=== PATIENT | female | born 1955 | race Caucasian/White ===

== ENCOUNTER → 2016-08-23 | Outpatient (CLI) | payer OTHER ==
[~2016-08-23] MED LIST: ATROPINE SULFATE 0.1 MG/ML 10ML SYRINGE ONE; DOBUTamine DRIP for NUC MED 500 MG in DEXTROSE/WATER 1 250ML.BAG IV ONE
--- NOTE | 2016-08-23 12:35 | ECHOS ---
DATE OF SERVICE: 08/23/2016 AGE: 61Y SEX: F HT: 63 WT: 158 lbs. Protocol Eric: Others: Dobutamine Stress Echo Stage: 4 Dur. of Exercise: 12:00 *Heart Rate Blood Pressure *Rest: 66 Rest: 125/76 * *Max. Achieved: 139 Maximum BP: 181/65 85% PMHR: 134 100% PMHR: 158 *METS: - INDICATIONS: Pre-operative. MEDICATIONS: - Baseline rhythm is sinus mechanism, rate of 66, normal axis and intervals, poor R-wave progression. Baseline blood pressure 125/76 mmHg. Patient received infusion of dobutamine per protocol as well as 0.5 mg of atropine. Peak rate 139 beats per minute, which is equal to 70% maximum predicted heart rate; peak blood pressure 181/65 mmHg. Electrocardiograph monitoring revealed occasional PVCs. There was no evidence of diagnostic ischemic ST deviation. FINDINGS: Baseline echocardiogram revealed normal wall motion. At peak exercise there was normal wall motion augmentation with no hypokinesis or dyskinesis. CONCLUSION: 1. Normal electrocardiograph response to dobutamine infusion with occasional premature ventricular contractions. 2. Normal stress echocardiogram with no evidence of stress-induced ischemia.
== END ==
LOC: RADNMMAIN 09:00
PROVIDERS: ATTEND Internal Medicine Cardiovascular Disease
DX: I42.9 Cardiomyopathy, unspecified (principal)
CPT/HCPCS: 93017; 93350; J1250

== ENCOUNTER 2024-06-19 12:28 | Observation (INO) | payer MEDICARE, OTHER ==
--- NOTE | 2024-06-19 12:54 | ED ---
General Adult HPI - General Stated complaint: HTN, dizziness Time Seen by Provider: 06/19/24 12:29 - History of Present Illness Initial comments: Dictation was produced using [employer] dictation software. please excuse any grammatical, word or spelling errors. Chief Complaint: 69-year-old female presents with dizziness and vertigo History of Present Illness: Patient is a 69-year-old female history of lung CVA. Patient presents to the emergency department for 1 to 2 days of dizziness and vertigo. Patient states that her symptoms are constant and persistent despite no movement. States that it does feel worse whenever she stands. Denies any vision changes. No numbness tingling paresthesias or weakness to the extremities. denies any acute pain. The ROS documented in this emergency department record has been reviewed and confirmed by me. Those systems with pertinent positive or negative responses have been documented in the HPI. .All other systems are other negative and/or noncontributory. - Related Data Home Medications Medication Instructions Recorded Confirmed DULoxetine HCL [Cymbalta] 60 mg PO DAILY 09/14/14 06/19/24 Gabapentin 800 mg PO TID 09/14/14 06/19/24 Oxybutynin Chloride 5 mg PO DAILY 09/14/14 06/19/24 Albuterol Sulfate [Ventolin HFA] 2 puff INHALATION RT-Q6H PRN 02/18/16 06/19/24 Aspirin EC [Ecotrin Low Dose] 81 mg PO DAILY 06/19/24 06/19/24 Baclofen [Lioresal] 10 mg PO TID PRN 06/19/24 06/19/24 Clopidogrel [Plavix] 75 mg PO DAILY 06/19/24 06/19/24 Fluticasone Propion/Salmeterol 1 puff INHALATION RT-Q12H 06/19/24 06/19/24 [Fluticasone-Salmeterol 250-50] Insulin Glargine,Hum.rec.anlog 7 - 8 unit SQ HS PRN 06/19/24 06/19/24 [Basaglar Kwikpen U-100] Ondansetron [Zofran] 4 mg PO QID PRN 06/19/24 06/19/24 Pravastatin Sodium [Pravachol] 40 mg PO DAILY 06/19/24 06/19/24 Umeclidinium [place] [Incruse 1 puff INHALATION RT-DAILY 06/19/24 06/19/24 Ellipta] lisinopriL [Zestril] 10 mg PO DAILY 06/19/24 06/19/24 oxyCODONE HCL [oxyCODONE HCL (IR)] 10 mg PO Q6HR PRN 06/19/24 06/19/24 traZODone HCL [Desyrel] 100 mg PO HS 06/19/24 06/19/24 Allergies Allergy/AdvReac Type Severity Reaction Status Date / Time cephalexin monohydrate Allergy Unknown Verified 06/19/24 13:13 [From Keflex] povidone-iodine Allergy Unknown Verified 06/19/24 13:13 [From Betadine] quetiapine fumarate Allergy Unknown Verified 06/19/24 13:13 [From Seroquel] soap [From Betadine] Allergy Unknown Verified 06/19/24 13:13 adhesive tape AdvReac Rash/Hives Verified 06/19/24 13:13 Review of Systems ROS Statement: Those systems with pertinent positive or pertinent negative responses have been documented in the HPI. ROS Other: All systems not noted in ROS Statement are negative. Past Medical History Past Medical History: COPD, Diabetes Mellitus, Hypertension, Musculoskeletal Dis order Additional Past Medical History / Comment(s): MS, wears 3L NC @ home History of Any Multi-Drug Resistant Organisms: None Reported Past Surgical History: Bladder Surgery, Breast Surgery, Cholecystectomy, Heart Catheterization With Stent, Hysterectomy Additional Past Surgical History / Comment(s): Bronchoscopy 10/13/15 Past Anesthesia/Blood Transfusion Reactions: No Reported Reaction Date of Last Stent Placement:: n\\a Past Psychological History: Anxiety, Depression Additional Past Alcohol Use History / Comment(s): smokes 8 cigarettes a day. does not use any alcohol. Past Drug Use History: None Reported - Past Family History Mother Family Medical History: Congestive Heart Failure (CHF) Additional Family Medical History / Comment(s): " from blood clot" Father Family Medical History: Cancer Additional Family Medical History / Comment(s): Lung CA Brother(s) Family Medical History: Diabetes Mellitus Additional Family Medical History / Comment(s): younger brother had grand mal seizures. General Exam - General Exam Comments Initial Comments: PHYSICAL EXAM: General Impression: Alert and oriented x3, not in acute distress HEENT: Normocephalic atraumatic, extra-ocular movements intact, pupils equal and reactive to light bilaterally, mucous membranes moist. Cardiovascular: Heart regular rate and rhythm Chest: Able to complete full sentences, no retractions, no tachypnea Abdomen: abdomen soft, non-tender, non-distended, no organomegaly Musculoskeletal: Pulses present and equal in all extremities, no peripheral edema Motor: no focal deficits noted Neurological: CN II-XII grossly intact, no focal motor or sensory deficits noted, direction changing nystagmus Skin: Intact with no visualized rashes Psych: Normal affect and mood Course Vital Signs 06/19/24 12:48 Temperature 98.1 F Pulse Rate 114 H Respiratory 22 Rate Blood Pressure 102/65 O2 Sat by Pulse 98 Oximetry EKG Findings - EKG Comments: EKG Findings:: My EKG interpretation: Ventricular rate 114, tachycardia QRS 86, QTc 400. No DE prolongation, no QTC prolongation, no ST or T-wave changes noted. . Overall, this EKG is unremarkable Medical Decision Making - Medical Decision Making Was pt. sent in by a medical professional or institution (, PA, [employer]CH[employer]IC, urgent care, hospital, or jail...) When possible be specific @ -No Did you speak to anyone other than the patient for history (EMS, parent, family, police, friend...)? What history was obtained from this source @ -No Did you review nursing and triage notes (agree or disagree)? Why? @ -I reviewed and agree with nursing and triage notes Were old charts reviewed (outside hosp., previous admission, EMS record, old EKG, old radiological studies, urgent care reports/EKG's, jail records)? Report findings @ -No old charts were reviewed Differential Diagnosis (chest pain, altered mental status, abdominal pain women, abdominal pain men, vaginal bleeding, musculoskeletal, weakness, fever, dyspnea, syncope, headache, dizziness, GI bleed, back pain, seizure, CVA, palpatations, mental health)? @ -Differential Dizziness: Benign paroxysmal positional Vertigo, Meniere's disease, otitis media, acoustic neuroma, vertebrobasilar insufficiency, cerebellar stroke, encephalitis, hypovolemic, arrhythmia, coronary artery syndrome, anemia, this is not meant to be an all-inclusive list EKG interpreted by me (3pts min.). @ -Above X-rays interpreted by me (1pt min.). @ -None done CT interpreted by me (1pt min.). @ -CT brain shows no acute processes. CT angiography shows no large vessel occlusion U/S interpreted by me (1pt. min.). @ -None done What testing was considered but not performed or refused? (CT, X-rays, U/S, labs)? Why? @ -None What meds were considered but not given or refused? Why? @ -None Was smoking cessation discussed for >3mins.? @ -No Were there social determinants of health that impacted care today? How? (Homelessness, low income, unemployed, alcoholism, drug addiction, transportation, low edu. Level, literacy, decrease access to med. care, nursing home, rehab)? @ -No Was there de-escalation of care discussed even if they declined (Discuss DNR or withdrawal of care, Hospice)? DNR status @ -No What co-morbidities impacted this encounter? (DM, HTN, Smoking, COPD, CAD, Cancer, CVA, ARF, Chemo, Hep., AIDS, mental health diagnosis, sleep apnea, morbid obesity)? @ -Lung cancer Was patient admitted / discharged? Hospital course, mention meds given and route, prescriptions, significant lab abnormalities, going to OR and other pertinent info. @ -69-year-old female presents emergency department dizziness and vertigo. Vital signs stable. Physical examination shows concerning nystagmus. Suspect central cause of vertigo. Laboratory evaluation obtained. Hyponatremia 131, potassium 3.1. Lactic acidosis 2.3. Rest of labs within acceptable. Imaging studies are negative. Given patient's history of lung cancer and concern for central cause of vertigo recommend patient for hospital admission with consultation to neurology. Patient sleeping however still feeling vertiginous upon reevaluation at 3:24 PM. Case discussed with hospitalist for admission Did you discuss the management of the patient with other professionals (professionals i.e. , PA, [employer]CH[employer]IC, lab, RT, psych nurse, social sciences professor, lathe mechanic, teacher, helicopter officer, outpatient case manager)? Give summary @ -No Was critical care preformed (if so, how long)? @ -No Undiagnosed new problem with uncertain prognosis? @ -No Drug Therapy requiring intensive monitoring for toxicity (Heparin, Nitro, Insulin, Cardizem)? @ -No Were any procedures done? @ -No Diagnosis/symptom? Acute, or Chronic, or Acute on Chronic? Uncomplicated (without systemic symptoms) or Complicated (systemic symptoms)? @ -Vertigo Side effects of treatment? @ -No Exacerbation, Progression, or Severe Exacerbation? @ -No Poses a threat to life or bodily function? How? (Chest pain, USA, SD, pneumonia, PE, COPD, DKA, ARF, appy, cholecystitis, CVA, Diverticulitis, Homicidal, Suicida l, threat to staff... and all critical care pts) @ -yes - Lab Data Result diagrams: 06/19/24 13:07 06/19/24 13:07 Lab Results 06/19/24 06/19/24 06/19/24 Range/Units 13:07 13:07 13:07 WBC 9.1 (3.8-10.6) k/uL RBC 3.78 L (3.80-5.40) m/uL Hgb 10.1 L (11.4-16.0) gm/dL Hct 31.3 L (34.0-46.0) % MCV 82.8 (80.0-100.0) fL MCH 26.8 (25.0-35.0) pg MCHC 32.4 (31.0-37.0) g/dL RDW 13.8 (11.5-15.5) % Plt Count 340 (150-450) k/uL MPV 7.5 Neutrophils % 84 % Lymphocytes % 9 % Monocytes % 5 % Eosinophils % 1 % Basophils % 0 % Neutrophils # 7.7 (1.3-7.7) k/uL Lymphocytes # 0.8 L (1.0-4.8) k/uL Monocytes # 0.5 (0-1.0) k/uL Eosinophils # 0.1 (0-0.7) k/uL Basophils # 0.0 (0-0.2) k/uL PT 11.4 (10.0-12.5) sec INR 1.0 (<1.2) APTT 24.0 (22.0-30.0) sec Sodium 131 L (137-145) mmol/L Potassium 3.1 L (3.5-5.1) mmol/L Chloride 92 L (98-107) mmol/L Carbon Dioxide 34 H (22-30) mmol/L Anion Gap 5 mmol/L BUN 7 (7-17) mg/dL Creatinine 0.57 (0.52-1.04) mg/dL Est GFR (CKD-EPI)AfAm >90 (>60 ml/min/1.73 sqM) Est GFR (CKD-EPI)NonAf >90 (>60 ml/min/1.73 sqM) Glucose 171 H (74-99) mg/dL Plasma Lactic Acid Bishop (0.7-2.0) mmol/L Calcium 8.4 (8.4-10.2) mg/dL Magnesium 1.9 (1.6-2.3) mg/dL Total Bilirubin 0.2 (0.2-1.3) mg/dL AST 14 (14-36) U/L ALT 11 (4-34) U/L Alkaline Phosphatase 98 (38-126) U/L Total Protein 5.6 L (6.3-8.2) g/dL Albumin 2.9 L (3.5-5.0) g/dL 06/19/24 Range/Units 13:07 WBC (3.8-10.6) k/uL RBC (3.80-5.40) m/uL Hgb (11.4-16.0) gm/dL Hct (34.0-46.0) % MCV (80.0-100.0) fL MCH (25.0-35.0) pg MCHC (31.0-37.0) g/dL RDW (11.5-15.5) % Plt Count (150-450) k/uL MPV Neutrophils % % Lymphocytes % % Monocytes % % Eosinophils % % Basophils % % Neutrophils # (1.3-7.7) k/uL Lymphocytes # (1.0-4.8) k/uL Monocytes # (0-1.0) k/uL Eosinophils # (0-0.7) k/uL Basophils # (0-0.2) k/uL PT (10.0-12.5) sec INR (<1.2) APTT (22.0-30.0) sec Sodium (137-145) mmol/L Potassium (3.5-5.1) mmol/L Chloride (98-107) mmol/L Carbon Dioxide (22-30) mmol/L Anion Gap mmol/L BUN (7-17) mg/dL Creatinine (0.52-1.04) mg/dL Est GFR (CKD-EPI)AfAm (>60 ml/min/1.73 sqM) Est GFR (CKD-EPI)NonAf (>60 ml/min/1.73 sqM) Glucose (74-99) mg/dL Plasma Lactic Acid Bishop 2.3 H* (0.7-2.0) mmol/L Calcium (8.4-10.2) mg/dL Magnesium (1.6-2.3) mg/dL Total Bilirubin (0.2-1.3) mg/dL AST (14-36) U/L ALT (4-34) U/L Alkaline Phosphatase (38-126) U/L Total Protein (6.3-8.2) g/dL Albumin (3.5-5.0) g/dL Disposition Clinical Impression: Vertigo Disposition: ADMITTED IP TO THIS [facility] Condition: Fair Referrals: None,Stated [Primary Care Provider] - 1-2 days Decision Time: 15:25
[2024-06-19] MEDS: MECLIZINE 12.5 MG TAB PO STA (13:18)
[2024-06-19] MEDS: MORPHINE SULFATE 4 MG/ML SYRINGE IVP PRN (13:18)
[2024-06-19] MEDS: METOCLOPRAMIDE 5 MG/ML 2 ML VIAL IVP STA (13:18)
[2024-06-19 13:23] LABS: Basophils % (A) 0 %; Eosinophils # (A) 0.1 k/uL (0-0.7); Eosinophils % (A) 1 %; HCT 31.3 % (34.0-46.0); HGB 10.1 gm/dL (11.4-16.0); Lymphocytes # (A) 0.8 k/uL (1.0-4.8); Lymphocytes % (A) 9 %; MCH 26.8 pg (25.0-35.0); MCHC 32.4 g/dL (31.0-37.0); MCV 82.8 fL (80.0-100.0); Mean Platelet Volume 7.5; Monocytes # (A) 0.5 k/uL (0-1.0); Monocytes % (A) 5 %; Neutrophils # (A) 7.7 k/uL (1.3-7.7); Neutrophils % (A) 84 %; Platelet Count 340 k/uL (150-450); RBC 3.78 m/uL (3.80-5.40); RDW 13.8 % (11.5-15.5); WBC 9.1 k/uL (3.8-10.6)
[2024-06-19 13:33] LABS: Prothrombin Time 11.4 sec (10.0-12.5)
[2024-06-19 13:39] LABS: ALT 11 U/L (4-34); AST 14 U/L (14-36); African American GFR (CKD) >90 (>60 ml/min/1.73 sqM); Albumin 2.9 g/dL (3.5-5.0); Alkaline Phosphatase 98 U/L (38-126); Anion Gap 5 mmol/L; Blood Urea Nitrogen 7 mg/dL (7-17); Calcium 8.4 mg/dL (8.4-10.2); Carbon Dioxide 34 mmol/L (22-30); Chloride 92 mmol/L (98-107); Glucose 171 mg/dL (74-99); Magnesium 1.9 mg/dL (1.6-2.3); Non-African American GFR(CKD) >90 (>60 ml/min/1.73 sqM); Potassium 3.1 mmol/L (3.5-5.1); Sodium 131 mmol/L (137-145); Total Bilirubin 0.2 mg/dL (0.2-1.3); Total Protein 5.6 g/dL (6.3-8.2)
--- NOTE | 2024-06-19 14:45 | CT ---
EXAMINATION TYPE: CT brain wo con DATE OF EXAM: 06/19/2024 COMPARISON: None CLINICAL INDICATION: Female, 69 years old with history of vertigo, hx of lung CA; PHH, dizziness, low bP. hx of lung ca CT DLP: 1209.6 mGycm Automated exposure control for dose reduction was used. Findings: The ventricles, basal cisterns and sulci over the convexities are within normal limits and there is n o mass effect or shift of midline structures. No abnormal density is seen throughout the brain parenchyma and there is no acute intra or extra-axia l hemorrhage. The posterior fossa including the brainstem, fourth ventricle and cerebellar pontine angles appear no rmal. Intraorbital contents appear normal and symmetric. Visualized paranasal sinuses and mastoid air cells are well aerated. The calvarium is intact. IMPRESSION: No significant abnormality seen. There is no acute bleed or mass effect. [facility], , 06/19/2024 2:42 PM
--- NOTE | 2024-06-19 14:52 | CT ---
EXAMINATION TYPE: CT angio head neck DATE OF EXAM: 06/19/2024 COMPARISON: None CLINICAL INDICATION: Female, 69 years old with history of neurologic defecit; PHH, dizziness, low bP. hx of lung ca TECHNIQUE: CTA scan of the head and neck is performed with IV Contrast, patient injected with 65ml m L of Isovue 370, axial images are obtained, coronal and sagittal reformatted images are reviewed. 3D reconstructed images are created on an independent workstation and reviewed. CT DLP: 349.[address] CTDI: mGy Automated exposure control for dose reduction was used. NASCET criteria was used in interpretation of this exam? FINDINGS: FINDINGS: The brachiocephalic origins are widely patent and no significant stenosis. There is no significant stenosis of the common or internal carotid arteries within the neck. There is minimal calcified eccentric plaques in the carotid bifurcations bilaterally. There is no stenosis of the vertebral arteries. Intracranially, there is no stenosis, segmental occlusion, sizable aneurysm sac or vascular malformat ion. In the visualized portion of the right lung apex, oz mass/consolidation is partially visualized and correlation with CT thorax is recommended. IMPRESSION:. 1. No significant occlusive disease of the carotid arteries within the neck or intracerebral circulat ion. 2. Lung mass or consolidation in the visualized portion of the right lung and correlation with CT tho rax is recommended. NASCET criteria was used in interpretation of this exam? [facility], , 06/19/2024 2:49 PM
[2024-06-19] MEDS ORDERED: NALOXONE 0.4 MG/ML 1 ML VIAL IV PRN (15:21)
[2024-06-19] MEDS: SODIUM CHLORIDE 0.9% 1,000 ML IV STA (15:48)
[2024-06-19] MEDS: SODIUM CHLORIDE 0.9% 1,000 ML IV SCH (15:49)
[2024-06-19] MEDS: MORPHINE SULFATE 4 MG/ML SYRINGE IV PRN (18:12)
[2024-06-19] MEDS ORDERED: BACLOFEN 10 MG TAB PO PRN (20:48)
[2024-06-19] MEDS ORDERED: ONDANSETRON 4 MG TAB PO PRN (20:48)
[2024-06-19] MEDS: GABAPENTIN 400 MG CAP PO SCH (21:33)
[2024-06-19] MEDS: traZODone HCL 100 MG TAB PO SCH (21:33)
[2024-06-19] MEDS: ACETAMINOPHEN TAB 325 MG TAB PO PRN (21:40)
[2024-06-20] MEDS ORDERED: Potassium Replacement Protocol 1 EACH MISC MISCELLANE PRN (05:52)
[2024-06-20] MEDS: SYMBICORT 80-4.5 MCG INHALER INHALATION SCH (08:06)
[2024-06-20] MEDS: TIOTROPIUM 2.5 MCG INHALER INHALATION SCH (08:06)
[2024-06-20] MEDS: ASPIRIN 81 MG PO SCH (09:31)
[2024-06-20] MEDS: DULoxetine HCL 60 MG CAPSULE.DR PO SCH (09:31)
[2024-06-20] MEDS: CLOPIDOGREL 75 MG TAB PO SCH (09:31)
[2024-06-20] MEDS: oxyBUTYnin chloride 5 MG TAB PO SCH (09:31)
[2024-06-20] MEDS: lisinopriL 10 MG TAB PO SCH (09:31)
[2024-06-20] MEDS: PRAVASTATIN SODIUM 40 MG TAB PO SCH (09:31)
--- NOTE | 2024-06-20 11:13 | P.CNNES ---
History of Present Illness Consult date: 06/20/23 Requesting physician: Jefe Travis Reason for Consult: vertigo, suspect central cause History of Present Illness: This is a 69-year-old woman who presented emergency department because of dizziness. Patient stated her dizziness began about 2 days ago and she described as the room spinning. She feels is at rest and movement but mostly with movement. She did have nausea but no vomiting. She feels her ears are rin ging bilaterally. Also endorses generalized weakness. She states that recently she is having dry cough. Denies any recent sickness. That her vision is blurry but denies any diplopia, dysphagia, focal weakness, numbness. Denies any history of stroke. Denies any history of atrial fibrillation. She has history of lung cancer status post chemoradiation therapy and last session was more than a year ago and she states that she is in remission. She has a history of ex tobacco use and stopped more than a year ago. She has a history of coronary artery disease status post stent. She does feel mildly better regarding her dizziness today compared to her initial presentation yesterday. Some of the workup during this hospital visit consisted of: Name is 131, glucose is 171, initial plasma lactic acid venous 2.3 and repeat is 1.8 Calcium, magnesium, AST and ALT are within normal limits. CT of the head is reported as no significant abnormality seen. There is no acute bleed or mass effect. I personally reviewed the CT and agree with the report. Neurography of the head and neck is reported as no significant occlusive disease of the carotid artery within the neck or intracerebral circulation. Lung mass or consolidation in the visualized portion of the right lung and correlation with CT thorax is recommended. Review of Systems As per HPI. Past Medical History Past Medical History: COPD, Diabetes Mellitus, Hypertension, Musculoskeletal Disorder Additional Past Medical History / Comment(s): MS, wears 3L NC @ home History of Any Multi-Drug Resistant Organisms: None Reported Past Surgical History: Bladder Surgery, Breast Surgery, Cholecystectomy, Heart Catheterization With Stent, Hysterectomy Additional Past Surgical History / Comment(s): Bronchoscopy 10/13/15 Past Anesthesia/Blood Transfusion Reactions: No Reported Reaction Date of Last Stent Placement:: n\\a Past Psychological History: Anxiety, Depression Additional Past Alcohol Use History / Comment(s): smokes 8 cigarettes a day. does not use any alcohol. Past Drug Use History: None Reported - Past Family History Mother Family Medical History: Congestive Heart Failure (CHF) Additional Family Medical History / Comment(s): " from blood clot" Father Family Medical History: Cancer Additional Family Medical History / Comment(s): Lung CA Brother(s) Family Medical History: Diabetes Mellitus Additional Family Medical History / Comment(s): younger brother had grand mal seizures. Medications and Allergies Home Medications Medication Instructions Recorded Confirmed Type DULoxetine HCL [Cymbalta] 60 mg PO DAILY 09/14/14 06/19/24 History Gabapentin 800 mg PO TID 09/14/14 06/19/24 History Oxybutynin Chloride 5 mg PO DAILY 09/14/14 06/19/24 History Albuterol Sulfate [Ventolin HFA] 2 puff INHALATION RT-Q6H PRN 02/18/16 06/19/24 History Aspirin EC [Ecotrin Low Dose] 81 mg PO DAILY 06/19/24 06/19/24 History Baclofen [Lioresal] 10 mg PO TID PRN 06/19/24 06/19/24 History Clopidogrel [Plavix] 75 mg PO DAILY 06/19/24 06/19/24 History Fluticasone Propion/Salmeterol 1 puff INHALATION RT-Q12H 06/19/24 06/19/24 History [Fluticasone-Salmeterol 250-50] Insulin Glargine,Hum.rec.anlog 7 - 8 unit SQ HS PRN 06/19/24 06/19/24 History [Basaglar Kwikpen U-100] Ondansetron [Zofran] 4 mg PO QID PRN 06/19/24 06/19/24 History Pravastatin Sodium [Pravachol] 40 mg PO DAILY 06/19/24 06/19/24 History Umeclidinium [place] [Incruse 1 puff INHALATION RT-DAILY 06/19/24 06/19/24 History Ellipta] lisinopriL [Zestril] 10 mg PO DAILY 06/19/24 06/19/24 History oxyCODONE HCL [oxyCODONE HCL (IR)] 10 mg PO Q6HR PRN 06/19/24 06/19/24 History traZODone HCL [Desyrel] 100 mg PO HS 06/19/24 06/19/24 History Allergies Allergy/AdvReac Type Severity Reaction Status Date / Time cephalexin monohydrate Allergy Unknown Verified 06/19/24 13:13 [From Keflex] povidone-iodine Allergy Unknown Verified 06/19/24 13:13 [From Betadine] quetiapine fumarate Allergy Unknown Verified 06/19/24 13:13 [From Seroquel] soap [From Betadine] Allergy Unknown Verified 06/19/24 13:13 adhesive tape AdvReac Rash/Hives Verified 06/19/24 13:13 Physical Examination - Vital Signs Vital Signs: Vital Signs Temp Pulse Pulse Resp BP BP Pulse Ox 06/20/24 09:34 92/57 06/20/24 08:07 97 06/20/24 07:57 97.7 F 75 20 110/66 97 06/20/24 06:28 62 20 92/58 99 06/20/24 03:30 64 18 113/61 99 06/20/24 00:24 70 20 100/59 99 06/19/24 20:14 82 18 116/51 95 06/19/24 18:04 97.8 F 73 20 86/48 97 06/19/24 15:41 81 20 87/41 98 06/19/24 12:48 98.1 F 114 H 22 102/65 98 GENERAL: The patient is lying in bed and is not in acute distress. NEUROLOGICAL: Higher mental function: The patient is awake, alert, oriented to self, place and time. Patient is following commands. No aphasia and no neglect. Cranial nerves: The pupils are round, 4mm, equal and reactive to light and accommodation. Visual warren are full to confrontation throughout. Extraocular movement is intact no nystagmus is noted. Facial sensation is normal to touch throughout. The facial strength is normal throughout. Hearing is normal bilaterally to hand rub. Tongue is midline and moved [id number] without any difficulty. No dysarthria is noted. Shoulder shrug is normal bilaterally. Motor: The strength is 5 over 5 throughout. Normal tone and bulk. Cerebellum: Normal finger to nosebilaterally. Sensation: Sensation is normal to touch throughout. Reflexes (right/left): 2+ throughout. Plantars are mute bilaterally. Results - Laboratory Findings CBC and BMP: 06/19/24 13:07 06/19/24 13:07 Abnormal Lab Findings: Abnormal Labs 06/19/24 06/19/24 06/19/24 13:07 13:07 13:07 RBC 3.78 L Hgb 10.1 L Hct 31.3 L Lymphocytes # 0.8 L Sodium 131 L Potassium 3.1 L Chloride 92 L Carbon Dioxide 34 H Glucose 171 H Plasma Lactic Acid Bishop 2.3 H* Total Protein 5.6 L Albumin 2.9 L Assessment and Plan Assessment: This is a 69-year-old woman with history of lung cancer status post chemoradiation therapy who presented emergency department because of dizziness about 2 days ago with ringing in the ears and has been having dry cough feels she is having blurry vision. Acute Vertigo seems more peripheral. On examination no focal deficit, no ataxia or dysmetria. I highly doubt central cause such as stroke or brain mets. Lung mass or consolidation on the right lung on the CT angiography History of lung cancer History of coronary artery disease status post stent Plan: I ordered MRI of the brain with and without to rule out any stroke or brain mets. Patient was given meclizine 50 mg once. I started the patient on meclizine 25 mg 1 tablet 3 times daily scheduled for 7 days and after that as needed. Patient is resumed on her home medication of aspirin 81 mg and Plavix 75 mg. I consulted PT and OT If MRI of the brain is unremarkable and patient continues to have dizziness then recommend the patient to follow-up with the ENT as an outpatient for further evaluation and consider reversible rehab therapy as an outpatient Lung mass or consolidation on the right lung on the CT angiography: Recommend pulmonary or Oncology consultation. Will defer the rest of the medical management to primary team and other speciali st Thank you for the consultation Dr. Morillo will resume neurology service tomorrow A.M. ADDENDUM: I spoke with the patient nurse and notified her about my recommendation but I was notified that patient wants to pursue hospice. If she does pursue hospice then no further neurological workup is needed. Time with Patient: Greater than 30
[2024-06-20] MEDS: MECLIZINE 12.5 MG TAB PO SCH (12:14)
[2024-06-20 14:30] VITALS: BMI 24.7
[2024-06-20] MEDS: ALBUTEROL NEBULIZED 2.5 MG/3 ML INHALATION PRN (14:37)
--- NOTE | 2024-06-20 16:43 | MR ---
EXAMINATION TYPE: MR brain wo/w con DATE OF EXAM: 06/20/2024 4:37 PM COMPARISON: 10/07/2014. CLINICAL INDICATION: Female, 69 years old with history of acute vertigo. hx of lung ca; PHH, Acute ve rtigo, Hx of lung cancer TECHNIQUE: Multi planar, multi sequence imaging was performed through the brain including: T1, T2, In version recovery, susceptibility weighted imaging and gradient echo imaging and Diffusion weighted im aging. The patient was then given intravenous contrast and multi planar, T1 fat-saturation images wer e obtained. IV Contrast: 6.5 mL Gadobutrol FINDINGS: The calhoun-white junctions, ventricular system, basal cisterns appear unremarkable. Diffusion-weighted imaging shows no evidence of restricted diffusion to suggest acute/subacute infarct. Intracranial ar terial flow voids are maintained. Midline structures show no abnormality. Scattered foci of high T2 s ignal intensity are seen within the periventricular white matter. The susceptibility weighted images do not reveal any evidence for micro-hemorrhage. After administration of gadolinium, no abnormal enha ncement is seen. The bone marrow signal is within normal limits. Paranasal sinuses and mastoid air cells: No significant paranasal sinus disease. Visualized orbits: Bilateral aphakia IMPRESSION: 1. No evidence of intracranial mass, acute/subacute infarct, or abnormal enhancement. 2. Nonspecific white matter changes, likely related to small vessel ischemic disease. [facility], , 06/20/2024 4:41 PM
[2024-06-20 20:44] LABS: Glucose,Whole Blood 170 mg/dL (70-110)
[2024-06-20] MEDS ORDERED: DEXTROSE 50% SYRINGE 50 ML IVP PRN ×2 (21:21)
[2024-06-20] MEDS ORDERED: IBUPROFEN 400 MG TAB PO PRN (22:42)
[2024-06-20] MEDS: INSULIN DETEMIR (LEVEMIR) 100 UNIT/ML SYR SQ SCH (22:54)
[2024-06-20 23:35] LABS: Influenza A Not Detected (Not Detectd); Influenza B Not Detected (Not Detectd); RSV Not Detected (Not Detectd)
[2024-06-21 07:04] LABS: Glucose,Whole Blood 144 mg/dL (70-110)
[2024-06-21] MEDS: INSULIN ASPART (NovoLOG) 100 UNIT/ML VIAL SQ SCH (07:49)
[2024-06-21] MEDS: POTASSIUM CHLORIDE ER 20 MEQ TAB.ER PO SCH (08:18)
[2024-06-21 09:41] LABS: Blood Urea Nitrogen 4.5 mg/dL (9.0-27.0); Calcium 8.2 mg/dL (8.7-10.3); Carbon Dioxide 28.5 mmol/L (21.6-31.8); Chloride 96 mmol/L (96-109); Glucose 135 mg/dL (70-110); Potassium 3.2 mmol/L (3.5-5.5); Sodium 135 mmol/L (135-145)
--- NOTE | 2024-06-21 10:53 | P.PN ---
Subjective Progress Note Date: 06/21/24 The patient is a 69-year-old female who is seen in neurologic follow-up on June 21, 2024, in coverage for Dr. Milton Benitez, in collaboration with Nicole Davey, via teleneurology. The patient's chart has been reviewed. This morning, patient reports she continues to feel a spinning sensation. She does report mild benefit with the meclizine she is receiving. She has not vomited in several days however, continues to be nauseated. The patient also reports tinnitus in her right ear. She says her symptoms are worse with turning of her head to the right. MRI of the brain images have been personally viewed. There is no evidence of acute hemorrhage or infarct. Objective - Vital Signs Vital signs: Vital Signs Temp 98.7 F 06/21/24 07:03 Pulse 74 06/21/24 07:03 Resp 16 06/21/24 07:03 BP 109/70 06/21/24 07:03 Pulse Ox 99 06/21/24 07:03 FiO2 Intake & Output 06/20/24 06/21/24 06/21/24 18:59 06:59 18:59 Intake Total 1443 Balance 1443 Weight 63.503 kg Intake: Oral 1443 Other: Voiding Method Toilet # Voids 4 4 - Exam General: The patient is well-nourished, well-developed and in no acute distress. HEENT: Head is atraumatic, normocephalic. Fundus not visualized. There is no scleral icterus. Mucous members are moist. Neurological examination Mental status: The patient is awake, alert and oriented x 3. Her speech is clear. There is no dysarthria or aphasia. Cranial nerves: Pupils are equal at 3 mm and reactive. Visual warren are full to confrontation. Extraocular movements are intact. There is no nystagmus. Facial sensation is intact. There is no facial asymmetry. Hearing is grossly intact. Uvula and palate are midline. Shoulder shrug is symmetric. Tongue protrudes midline. Motor: Strength is 5/5 throughout. Sensation: Grossly intact to light touch throughout. Coordination: Kxcyxh-oq-bibw and krou-hb-aixq testing are intact. Gait: Patient was observed walking from the bathroom. She is somewhat unsteady. She takes short steps, with a wide-based gait. She is using her IV pole for assistance. - Labs CBC & Chem 7: 06/19/24 13:07 06/21/24 03:34 Labs: Abnormal Lab Results - Last 24 Hours (Table) 06/20/24 06/21/24 06/21/24 Range/Units 20:42 03:34 03:34 Potassium 3.2 L (3.5-5.5) mmol/L BUN 4.5 L (9.0-27.0) mg/dL Creatinine 0.5 L (0.6-1.5) mg/dL BUN/Creatinine Ratio 9.00 L (12.00-20.00) Ratio Glucose 135 H (70-110) mg/dL POC Glucose (mg/dL) 170 H (70-110) mg/dL Hemoglobin A1c 6.6 H (<=6.0) % Calcium 8.2 L (8.7-10.3) mg/dL 06/21/24 Range/Units 07:02 Potassium (3.5-5.5) mmol/L BUN (9.0-27.0) mg/dL Creatinine (0.6-1.5) mg/dL BUN/Creatinine Ratio (12.00-20.00) Ratio Glucose (70-110) mg/dL POC Glucose (mg/dL) 144 H (70-110) mg/dL Hemoglobin A1c (<=6.0) % Calcium (8.7-10.3) mg/dL Assessment and Plan Assessment: 1. Benign paroxysmal positional vertigo, worse with right head turn. MRI of the brain is negative for acute infarct 2. Lung mass or consolidation on the right lung on the CT angiography 3. History of lung cancer 4. History of coronary artery disease status post stent Plan: 1. Physical therapy evaluation for Yvette maneuver, has been ordered 2. Continue meclizine at this time as it has been beneficial 3. Consider ENT consultation as outpatient 4. CT angiogram reports right lung mass or consolidation, consider pulmonary consultation 5. No further neurologic intervention is needed at this time. Please call with questions or concerns. Neurology will sign off. Time with Patient: Greater than 30 (35 minutes were spent caring for this patient today including, obtaining a history, examining the patient, reviewing imaging, chart documentation, labs, placing orders and creating this note)
[2024-06-21 12:08] LABS: Glucose,Whole Blood 130 mg/dL (70-110)
[2024-06-21 17:06] LABS: Glucose,Whole Blood 138 mg/dL (70-110)
[2024-06-21 20:14] LABS: Glucose,Whole Blood 225 mg/dL (70-110)
[2024-06-22 07:11] LABS: Glucose,Whole Blood 112 mg/dL (70-110)
--- NOTE | 2024-06-22 11:54 | P.HPIM ---
History of Present Illness H&P Date: 06/20/24 Chief Complaint: Dizziness 69-year-old woman, history of hypertension, diabetes mellitus, COPD, coronary artery disease status post stent, history of lung cancer status post c hemoradiation therapy and last session was more than a year ago and she states that she is in remission; who presented emergency department because of dizziness that began about 2 days ago and she described as the room spinning. She feels is at rest and movement but mostly with movement. She did have nausea but no vomiting. She feels her ears are ringing bilaterally. Also endorses generalized weakness. She states that recently she is having dry cough. Denies any recent sickness. That her vision is blurry but denies any diplopia, dysphagia, focal weakness, numbness. Denies any history of stroke. Denies any history of atrial fibrillation. She has a history of ex tobacco use and stopped more than a year ago. She has a history of coronary artery disease status post stent. She does feel mildly better regarding her dizziness today compared to her initial presentation yesterday. Some of the workup during this hospital visit consisted of: Sodium is 131, glucose is 171, initial plasma lactic acid venous 2.3 and repeat is 1.8 Calcium, magnesium, AST and ALT are within normal limits. CT of the head is reported as no significant abnormality seen. There is no acute bleed or mass effect. I personally reviewed the CT and agree with the report. CTA of the head and neck is reported as no significant occlusive disease of the carotid artery within the neck or intracerebral circulation. Lung mass or consolidation in the visualized portion of the right lung and correlation with CT thorax is recommended. Review of Systems REVIEW OF SYSTEMS: CONSTITUTIONAL: No fever, no malaise, no fatigue. HEENT: No recent visual problems or hearing problems. Denied any sore throat. CARDIOVASCULAR: No chest pain, orthopnea, PND, no palpitations, no syncope. PULMONARY: No shortness of breath, no cough, no hemoptysis. GASTROINTESTINAL: No diarrhea, no nausea, no vomiting, no abdominal pain. NEUROLOGICAL: No headaches, no weakness, no numbness. HEMATOLOGICAL: Denies any bleeding or petechiae. GENITOURINARY: Denies any burning micturition, frequency, or urgency. MUSCULOSKELETAL/RHEUMATOLOGICAL: Denies any joint pain, swelling, or any muscle pain. ENDOCRINE: Denies any polyuria or polydipsia. The rest of the 14-point review of systems is negative. Past Medical History Past Medical History: COPD, Diabetes Mellitus, Hypertension, Musculoskeletal Disorder Additional Past Medical History / Comment(s): MS, wears 3L NC @ home History of Any Multi-Drug Resistant Organisms: None Reported Past Surgical History: Bladder Surgery, Breast Surgery, Cholecystectomy, Heart Catheterization With Stent, Hysterectomy Additional Past Surgical History / Comment(s): Bronchoscopy 10/13/15 Past Anesthesia/Blood Transfusion Reactions: No Reported Reaction Date of Last Stent Placement:: n\\a Past Psychological History: Anxiety, Depression Additional Past Alcohol Use History / Comment(s): smokes 8 cigarettes a day. does not use any alcohol. Past Drug Use History: None Reported - Past Family History Mother Family Medical History: Congestive Heart Failure (CHF) Additional Family Medical History / Comment(s): " from blood clot" Father Family Medical History: Cancer Additional Family Medical History / Comment(s): Lung CA Brother(s) Family Medical History: Diabetes Mellitus Additional Family Medical History / Comment(s): younger brother had grand mal seizures. Medications and Allergies Home Medications Medication Instructions Recorded Confirmed Type DULoxetine HCL [Cymbalta] 60 mg PO DAILY 09/14/14 06/19/24 History Gabapentin 800 mg PO TID 09/14/14 06/19/24 History Oxybutynin Chloride 5 mg PO DAILY 09/14/14 06/19/24 History Albuterol Sulfate [Ventolin HFA] 2 puff INHALATION RT-Q6H PRN 02/18/16 06/19/24 History Aspirin EC [Ecotrin Low Dose] 81 mg PO DAILY 06/19/24 06/19/24 History Baclofen [Lioresal] 10 mg PO TID PRN 06/19/24 06/19/24 History Clopidogrel [Plavix] 75 mg PO DAILY 06/19/24 06/19/24 History Fluticasone Propion/Salmeterol 1 puff INHALATION RT-Q12H 06/19/24 06/19/24 History [Fluticasone-Salmeterol 250-50] Insulin Glargine,Hum.rec.anlog 7 - 8 unit SQ HS PRN 06/19/24 06/19/24 History [Basaglar Kwikpen U-100] Ondansetron [Zofran] 4 mg PO QID PRN 06/19/24 06/19/24 History Pravastatin Sodium [Pravachol] 40 mg PO DAILY 06/19/24 06/19/24 History Umeclidinium [place] [Incruse 1 puff INHALATION RT-DAILY 06/19/24 06/19/24 History Ellipta] lisinopriL [Zestril] 10 mg PO DAILY 06/19/24 06/19/24 History oxyCODONE HCL [oxyCODONE HCL (IR)] 10 mg PO Q6HR PRN 06/19/24 06/19/24 History traZODone HCL [Desyrel] 100 mg PO HS 06/19/24 06/19/24 History Allergies Allergy/AdvReac Type Severity Reaction Status Date / Time cephalexin monohydrate Allergy Unknown Verified 06/19/24 13:13 [From Keflex] povidone-iodine Allergy Unknown Verified 06/19/24 13:13 [From Betadine] quetiapine fumarate Allergy Unknown Verified 06/19/24 13:13 [From Seroquel] soap [From Betadine] Allergy Unknown Verified 06/19/24 13:13 adhesive tape AdvReac Rash/Hives Verified 06/19/24 13:13 Physical Exam Vitals: Vital Signs Temp Pulse Pulse Resp BP BP Pulse Ox 06/20/24 12:52 98.6 F 80 20 114/72 98 06/20/24 09:34 92/57 06/20/24 08:07 97 06/20/24 07:57 97.7 F 75 20 110/66 97 06/20/24 06:28 62 20 92/58 99 06/20/24 03:30 64 18 113/61 99 06/20/24 00:24 70 20 100/59 99 06/19/24 20:14 82 18 116/51 95 06/19/24 18:04 97.8 F 73 20 86/48 97 06/19/24 15:41 81 20 87/41 98 Intake and Output 06/19/24 06/20/24 06/20/24 22:59 06:59 14:59 Other: Voiding Method Toilet Weight 63.503 kg General Impression: Alert and oriented x3, not in acute distress HEENT: Normocephalic atraumatic, extra-ocular movements intact, pupils equal and reactive to light bilaterally, mucous membranes moist. Cardiovascular: Heart regular rate and rhythm Chest: Able to complete full sentences, no retractions, no tachypnea Abdomen: abdomen soft, non-tender, non-distended, no organomegaly Musculoskeletal: Pulses present and equal in all extremities, no peripheral edema Motor: no focal deficits noted Neurological: CN II-XII grossly intact, no focal motor or sensory deficits noted, direction changing nystagmus Skin: Intact with no visualized rashes Psych: Normal affect and mood Results CBC & Chem 7: 06/19/24 13:07 06/21/24 18:59 Thrombosis Risk Factor Assmnt - Choose All That Apply Each Factor Represents 1 point: Abnormal pulmonary function (COPD) Each Risk Factor Represents 2 Points: Age 61-74 years Thrombosis Risk Factor Assessment Total Risk Factor Score: 3 Thrombosis Risk Factor Assessment Level: Moderate Risk Assessment and Plan Assessment: 1. Dizziness rule out CVA CT of the head is reported as no significant abnormality seen. There is no acute bleed or mass effect. I personally reviewed the CT and agree with the report. Neurography of the head and neck is reported as no significant occlusive disease of the carotid artery within the neck or intracerebral circulation. Lung mass or consolidation in the visualized portion of the right lung and correlation with CT thorax is recommended. -- Patient has been evaluated by neurology and is recommended MRI of the brain with and without contrast to rule out any stroke or brain metastases; if MRI of the brain is negative patient is recommended follow-up with ENT as an outpatient and physical therapy 2. Acute vertigo; patient has been placed on meclizine 25 mg 1 tablet 3 times daily scheduled for 7 days after that as needed 3. Lung mass/consolidation; seen on CT angiography -- Discussed with patient; patient and family planning to opt for hospice care -- Will hold off on pulmonary/oncology consult 4. Diabetes mellitus type 2 with long-term insulin use; patient takes Lantus 7 to 8 units SQ nightly 5. Hypertension; lisinopril 10 mg daily 6. COPD; not in exacerbation; patient uses O2 at 3 L per nasal cannula; continue with home inhaler therapy 7. Hyperlipidemia; pravastatin 40 mg daily DVT prophylaxis; SCDs CODE STATUS; full code
--- NOTE | 2024-06-22 11:55 | P.PN ---
Subjective Progress Note Date: 06/22/24 69-year-old woman, history of hypertension, diabetes mellitus, COPD, coronary artery disease status post stent, history of lung cancer status post chemoradiation therapy and last session was more than a year ago and she states that she is in remission; who presented emergency department because of dizzine ss that began about 2 days ago and she described as the room spinning. She feels is at rest and movement but mostly with movement. She did have nausea but no vomiting. She feels her ears are ringing bilaterally. Also endorses generalized weakness. She states that recently she is having dry cough. Denies any recent sickness. That her vision is blurry but denies any diplopia, dysphagia, focal weakness, numbness. Denies any history of stroke. Denies any history of atrial fibrillation. She has a history of ex tobacco use and stopped more than a year ago. She has a history of coronary artery disease status post stent. She does feel mildly better regarding her dizziness today compared to her initial presentation yesterday. Some of the workup during this hospital visit consisted of: Sodium is 131, glucose is 171, initial plasma lactic acid venous 2.3 and repeat is 1.8 Calcium, magnesium, AST and ALT are within normal limits. CT of the head is reported as no significant abnormality seen. There is no acute bleed or mass effect. I personally reviewed the CT and agree with the re port. CTA of the head and neck is reported as no significant occlusive disease of the carotid artery within the neck or intracerebral circulation. Lung mass or consolidation in the visualized portion of the right lung and correlation with CT thorax is recommended. --Patient has opted for hospice care Objective - Vital Signs Vital signs: Vital Signs Temp 98.7 F 06/21/24 07:03 Pulse 74 06/21/24 07:03 Resp 16 06/21/24 07:03 BP 109/70 06/21/24 07:03 Pulse Ox 99 06/21/24 07:03 FiO2 Intake & Output 06/20/24 06/21/24 06/21/24 18:59 06:59 18:59 Intake Total 1443 Balance 1443 Weight 63.503 kg Intake: Oral 1443 Other: Voiding Method Toilet # Voids 4 4 - Exam General Impression: Alert and oriented x3, not in acute distress HEENT: Normocephalic atraumatic, extra-ocular movements intact, pupils equal and reactive to light bilaterally, mucous membranes moist. Cardiovascular: Heart regular rate and rhythm Chest: Able to complete full sentences, no retractions, no tachypnea Abdomen: abdomen soft, non-tender, non-distended, no organomegaly Musculoskeletal: Pulses present and equal in all extremities, no peripheral reina ma Motor: no focal deficits noted Neurological: CN II-XII grossly intact, no focal motor or sensory deficits noted, direction changing nystagmus Skin: Intact with no visualized rashes Psych: Normal affect and mood - Labs CBC & Chem 7: 06/19/24 13:07 06/21/24 18:59 Labs: Abnormal Lab Results - Last 24 Hours (Table) 06/20/24 06/21/24 06/21/24 Range/Units 20:42 03:34 03:34 Potassium 3.2 L (3.5-5.5) mmol/L BUN 4.5 L (9.0-27.0) mg/dL Creatinine 0.5 L (0.6-1.5) mg/dL BUN/Creatinine Ratio 9.00 L (12.00-20.00) Ratio Glucose 135 H (70-110) mg/dL POC Glucose (mg/dL) 170 H (70-110) mg/dL Hemoglobin A1c 6.6 H (<=6.0) % Calcium 8.2 L (8.7-10.3) mg/dL 06/21/24 06/21/24 Range/Units 07:02 12:07 Potassium (3.5-5.5) mmol/L BUN (9.0-27.0) mg/dL Creatinine (0.6-1.5) mg/dL BUN/Creatinine Ratio (12.00-20.00) Ratio Glucose (70-110) mg/dL POC Glucose (mg/dL) 144 H 130 H (70-110) mg/dL Hemoglobin A1c (<=6.0) % Calcium (8.7-10.3) mg/dL Assessment and Plan Assessment: 1. Dizziness rule out CVA CT of the head is reported as no significant abnormality seen. There is no ac jena bleed or mass effect. I personally reviewed the CT and agree with the report. Neurography of the head and neck is reported as no significant occlusive disease of the carotid artery within the neck or intracerebral circulation. Lung mass or consolidation in the visualized portion of the right lung and correlation with CT thorax is recommended. -- Patient has been evaluated by neurology and is recommended MRI of the brain with and without contrast to rule out any stroke or brain metastases; if MRI of the brain is negative patient is recommended follow-up with ENT as an outpatient and physical therapy 2. Acute vertigo; patient has been placed on meclizine 25 mg 1 tablet 3 times daily scheduled for 7 days after that as needed 3. Lung mass/consolidation; seen on CT angiography -- Discussed with patient; patient and family planning to opt for hospice care -- Will hold off on pulmonary/oncology consult 4. Diabetes mellitus type 2 with long-term insulin use; patient takes Lantus 7 to 8 units SQ nightly 5. Hypertension; lisinopril 10 mg daily 6. COPD; not in exacerbation; patient uses O2 at 3 L per nasal cannula; continue with home inhaler therapy 7. Hyperlipidemia; pravastatin 40 mg daily DVT prophylaxis; SCDs CODE STATUS; full code
[2024-06-22 12:08] LABS: Glucose,Whole Blood 147 mg/dL (70-110)
--- NOTE | 2024-06-22 16:41 | P.PN ---
Subjective Progress Note Date: 06/22/24 69-year-old woman, history of hypertension, diabetes mellitus, COPD, coronary artery disease status post stent, history of lung cancer status post chemoradiation therapy and last session was more than a year ago and she states that she is in remission; who presented emergency department because of dizzine ss that began about 2 days ago and she described as the room spinning. She feels is at rest and movement but mostly with movement. She did have nausea but no vomiting. She feels her ears are ringing bilaterally. Also endorses generalized weakness. She states that recently she is having dry cough. Denies any recent sickness. That her vision is blurry but denies any diplopia, dysphagia, focal weakness, numbness. Denies any history of stroke. Denies any history of atrial fibrillation. She has a history of ex tobacco use and stopped more than a year ago. She has a history of coronary artery disease status post stent. She does feel mildly better regarding her dizziness today compared to her initial presentation yesterday. Some of the workup during this hospital visit consisted of: Sodium is 131, glucose is 171, initial plasma lactic acid venous 2.3 and repeat is 1.8 Calcium, magnesium, AST and ALT are within normal limits. CT of the head is reported as no significant abnormality seen. There is no acute bleed or mass effect. I personally reviewed the CT and agree with the re port. CTA of the head and neck is reported as no significant occlusive disease of the carotid artery within the neck or intracerebral circulation. Lung mass or consolidation in the visualized portion of the right lung and correlation with CT thorax is recommended. --Patient has opted for hospice care 06/22/2024 -- Patient to be discharged home with hospice; concerned about some back pain with urinary symptoms; requesting to be treated for UTI Vital signs are reviewed and remained stable; blood sugars are within normal limit --Will add Keflex 500 mg 3 times daily for 5 days for possible symptomatic UTI Objective - Vital Signs Vital signs: Vital Signs Temp 98.1 F 06/22/24 07:12 Pulse 70 06/22/24 07:12 Resp 20 06/22/24 07:12 BP 129/76 06/22/24 07:12 Pulse Ox 98 06/22/24 07:12 FiO2 Intake & Output 06/21/24 06/22/24 06/22/24 18:59 06:59 18:59 Intake Total 1206 Balance 1206 Intake: Oral 1206 Other: # Voids 6 4 - Exam General Impression: Alert and oriented x3, not in acute distress HEENT: Normocephalic atraumatic, extra-ocular movements intact, pupils equal and reactive to light bilaterally, mucous membranes moist. Cardiovascular: Heart regular rate and rhythm Chest: Able to complete full sentences, no retractions, no tachypnea Abdomen: abdomen soft, non-tender, non-distended, no organomegaly Musculoskeletal: Pulses present and equal in all extremities, no peripheral edema Motor: no focal deficits noted Neurological: CN II-XII grossly intact, no focal motor or sensory deficits noted, direction changing nystagmus Skin: Intact with no visualized rashes Psych: Normal affect and mood - Labs CBC & Chem 7: 06/19/24 13:07 06/21/24 18:59 Labs: Abnormal Lab Results - Last 24 Hours (Table) 06/21/24 06/21/24 06/21/24 Range/Units 12:07 17:05 20:12 POC Glucose (mg/dL) 130 H 138 H 225 H (70-110) mg/dL 06/22/24 Range/Units 07:10 POC Glucose (mg/dL) 112 H (70-110) mg/dL Assessment and Plan Assessment: 1. Dizziness rule out CVA CT of the head is reported as no significant abnormality seen. There is no acute bleed or mass effect. I personally reviewed the CT and agree with the report. Neurography of the head and neck is reported as no significant occlusive disease of the carotid artery within the neck or intracerebral circulation. Lung mass or consolidation in the visualized portion of the right lung and correlation with CT thorax is recommended. -- Patient has been evaluated by neurology and is recommended MRI of the brain with and without contrast to rule out any stroke or brain metastases; if MRI of the brain is negative patient is recommended follow-up with ENT as an outpatient and physical therapy 2. Acute vertigo; patient has been placed on meclizine 25 mg 1 tablet 3 times daily scheduled for 7 days after that as needed 3. Lung mass/consolidation; seen on CT angiography -- Discussed with patient; patient and family planning to opt for hospice care -- Will hold off on pulmonary/oncology consult 4. Diabetes mellitus type 2 with long-term insulin use; patient takes Lantus 7 to 8 units SQ nightly 5. Hypertension; lisinopril 10 mg daily 6. COPD; not in exacerbation; patient uses O2 at 3 L per nasal cannula; continue with home inhaler therapy 7. Hyperlipidemia; pravastatin 40 mg daily DVT prophylaxis; SCDs CODE STATUS; full code
[2024-06-22 17:20] LABS: Glucose,Whole Blood 142 mg/dL (70-110)
[2024-06-22 21:08] LABS: Glucose,Whole Blood 169 mg/dL (70-110)
[2024-06-22 22:48] LABS: Appearance,Urine Cloudy (Clear); Bacteria,Urine Rare /hpf; Bilirubin,Urine Negative (Negative); Blood,Urine Negative (Negative); Color,Urine Colorless; Glucose,Urine (UA) Negative (Negative); Ketones,Urine Negative (Negative); Leukocyte Esterase,Urine Small (Negative); Mucus,Urine Rare /hpf; Nitrite,Urine Negative (Negative); PH, Urine 7.5 (5.0-8.0); Protein,Urine Negative (Negative); RBC,Urine <1 /hpf (0-5); Specific Gravity,Urine 1.008 (1.001-1.035); Squamous Epithelial Cell,Urine <1 /hpf (0-4); WBC,Urine 5 /hpf (0-5)
[2024-06-22] MEDS: SULFAMETHOX-TMP 800-160MG 1 EACH TAB PO SCH (22:53)
[2024-06-23 07:29] LABS: Glucose,Whole Blood 112 mg/dL (70-110)
[2024-06-23 08:05] VITALS: TEMP 98.6
[2024-06-23] MEDS: SENNOSIDES 8.6 MG TAB PO PRN (08:23)
[2024-06-23 08:28] VITALS: RESP 17
[2024-06-23] MEDS: SODIUM CHLORIDE 0.9% 1,000 ML IV ONE (09:27)
[2024-06-23 10:29] VITALS: BP 113/70; PULSE 74
== END 2024-06-23 12:59 | disposition hospice, home (50) ==
LOC: EC 12:28 → 5NMEDONC 15:21
PROVIDERS: ADMIT Hospitalist; ATTEND Hospitalist
DX: H81.10 Benign paroxysmal vertigo, unspecified ear (principal); E11.9 Type 2 diabetes mellitus without complications; J44.9 Chronic obstructive pulmonary disease, unspecified; I10 Essential (primary) hypertension; F32.A Depression, unspecified; F41.9 Anxiety disorder, unspecified; I25.10 Atherosclerotic heart disease of native coronary artery without angina pectoris; R91.8 Other nonspecific abnormal finding of lung field; E78.5 Hyperlipidemia, unspecified; Z85.118 Personal history of other malignant neoplasm of bronchus and lung; Z87.891 Personal history of nicotine dependence; Z95.5 Presence of coronary angioplasty implant and graft; Z92.21 Personal history of antineoplastic chemotherapy; Z92.3 Personal history of irradiation; Z79.02 Long term (current) use of antithrombotics/antiplatelets; Z79.4 Long term (current) use of insulin; Z79.51 Long term (current) use of inhaled steroids; Z79.82 Long term (current) use of aspirin; Z79.899 Other long term (current) drug therapy; Z88.1 Allergy status to other antibiotic agents
CPT/HCPCS: 96376 ×6; 96374; 96375; 99285; 36415; 94660 ×5; 94640 ×8; 94760; 93005; 80053; 80048; 83605 ×2; 83735; 84132; 85025; 85610; 85730; 81001; 87040; 83036; 87636; 70496; 70450; 70498; 70553; G0378 ×5; J2270 ×5; J2765; Q9967; A9585